=== PATIENT | male | born 1960 | race Caucasian/White ===

== ENCOUNTER 2020-05-31 13:30 | Emergency (ER) | payer OTHER ==
[~2020-05-31] VITALS: Ht 170.2 cm; Wt 96.8 kg
[2020-05-31] MEDS ORDERED: SERT100T12 PO (13:50)
[2020-05-31] MEDS ORDERED: EMPA25TA PO (13:50)
[2020-05-31] MEDS ORDERED: ROPI0.2535 PO (13:50)
[2020-05-31] MEDS ORDERED: METO25 PO (13:50)
[2020-05-31] MEDS ORDERED: INSLAN SQ (13:50)
[2020-05-31] MEDS ORDERED: DULA1.5P SQ (13:50)
[2020-05-31] MEDS ORDERED: LEVO125 PO (13:50)
[2020-05-31] MEDS ORDERED: ATOR40TA28 PO (13:50)
[2020-05-31] MEDS ORDERED: QUET200T PO (13:50)
[2020-05-31] MEDS ORDERED: CARV6 PO (13:50)
[2020-05-31] MEDS ORDERED: TELM40 PO (13:50)
[2020-05-31] MEDS ORDERED: GABA-1181 PO (13:50)
[2020-05-31] MEDS ORDERED: CETI-450 PO (13:50)
[2020-05-31] MEDS ORDERED: INSU100V SQ (13:50)
[2020-05-31] MEDS ORDERED: LITH300C3 PO (13:50)
[2020-05-31] MEDS ORDERED: FENO160T41 PO (13:50)
[2020-05-31] MEDS ORDERED: SPIR50 PO (13:50)
[2020-05-31] MEDS ORDERED: TOLT2TAB2 PO (13:50)
[2020-05-31] MEDS ORDERED: TAMS-13 PO (13:50)
[2020-05-31] MEDS ORDERED: CHOL100018 PO (13:53)
[2020-05-31] MEDS ORDERED: VITA400T9 PO (13:53)
[2020-05-31] MEDS ORDERED: OMEG-102 PO (13:53)
[2020-05-31] MEDS ORDERED: CINN500C4 PO (13:53)
[2020-05-31] MEDS ORDERED: ASPI-728 PO (13:53)
[2020-05-31] MEDS ORDERED: MULT-1259 PO (13:53)
[2020-05-31] MEDS ORDERED: SODIUM CHLORIDE 0.9% 1,000 ML IV ONE ×2 (14:30→16:45)
[2020-05-31] MEDS ORDERED: LORazepam 1 MG TABLET PO ONE (14:30)
[2020-05-31 14:52] LABS: BASOPHILS % (AUTO) 0.3 % (0.0-2.0); EOSINOPHILS % (AUTO) 0.1 % (1.0-6.0); HEMATOCRIT 47.8 % (41-53); HEMOGLOBIN 15.7 g/dL (13.5-17.5); LYMPHOCYTES # (AUTO) 1.7 K/uL (1.0-4.8); LYMPHOCYTES % (AUTO) 13.5 % (22.0-44.0); MEAN CORPUSCULAR HEMOGLOBIN 28.8 pg (26.0-34.0); MEAN CORPUSCULAR HGB CONC 32.9 G/dL (31.0-37.0); MEAN CORPUSCULAR VOLUME 87 fL (80-100); MONOCYTES # (AUTO) 0.8 K/uL (0.1-1.0); MONOCYTES % (AUTO) 6.3 % (2.0-9.0); NEUTROPHILS # (AUTO) 9.8 K/uL (1.8-7.7); NEUTROPHILS % (AUTO) 79.8 % (40.0-70.0); PLATELET COUNT (AUTO) 268 K/uL (150-450); RED BLOOD CELL COUNT(AUTO) 5.47 MIL/uL (4.50-5.90); RED CELL DISTRIBUTION WIDTH 15.6 % (11.5-14.5)
[2020-05-31 15:05] LABS: CALCIUM, TOTAL 9.4 mg/dL (8.8-10.5); CREATININE 1.36 mg/dL (0.60-1.30); POTASSIUM 3.1 mmol/L (3.5-5.1)
[2020-05-31 15:15] LABS: ALBUMIN 4.3 g/dL (3.4-5.0); BILIRUBIN,TOTAL 0.5 mg/dL (0.1-1.0); TOTAL PROTEIN, SERUM 7.6 g/dL (6.4-8.2)
[2020-05-31] MEDS ORDERED: POTASSIUM CHLORIDE 20 MEQ ER TABLET PO ONE (16:00)
[2020-05-31] MEDS ORDERED: ONDANSETRON HCL 4 MG/2 ML VIAL IVP ONE (16:00)
[2020-05-31 16:18] LABS: LITHIUM 0.29 mmol/L (0.60-1.20)
[2020-05-31] MEDS ORDERED: LITH600 PO (16:40)
[2020-05-31 17:30] VITALS: BP 138/81
[2020-05-31 17:30] LABS: APPEARANCE,URINE CLEAR (CLEAR); BILIRUBIN,URINE NEGATIVE (NEGATIVE); GLUCOSE, URINE (UA) >=1000 mg/dL (NEGATIVE); KETONES,URINE TRACE mg/dL (NEGATIVE); LEUKOCYTE ESTERASE ,URINE NEGATIVE (NEGATIVE); NITRATE,URINE NEGATIVE (NEGATIVE); OCCULT BLOOD,URINE NEGATIVE (NEGATIVE); PROTEIN,URINE TRACE (NEGATIVE); UROBILINOGEN,URINE 0.2 mg/dL (<=1.0)
[2020-05-31 17:36] LABS: AMPHET/METH SCREEN,URINE NEGATIVE (NEGATIVE); BARBITURATE SCREEN, URINE NEGATIVE (NEGATIVE); BENZODIAZEPINES SCREEN,URINE NEGATIVE (NEGATIVE); CANNABINOID SCREEN,URINE NEGATIVE (NEGATIVE); COCAINE SCREEN,URINE NEGATIVE (NEGATIVE); METHADONE SCREEN, URINE NEGATIVE (NEGATIVE); OPIATE SCREEN,URINE NEGATIVE (NEGATIVE)
[2020-05-31 17:40] LABS: BACTERIA,URINE None Seen /HPF (None Seen); RBC,URINE None Seen /HPF (0-2); WBC,URINE None Seen /HPF (0-5)
[2020-05-31 17:43] LABS: PHENCYCLIDINE SCREEN,URINE NEGATIVE (NEGATIVE)
== END 2020-05-31 18:03 | disposition home or self-care (01) ==
LOC: EMS 13:35
DX: K80.20 Calculus of gallbladder without cholecystitis without obstruction (principal); E87.6 Hypokalemia; E86.0 Dehydration; E11.9 Type 2 diabetes mellitus without complications; R11.2 Nausea with vomiting, unspecified; E78.00 Pure hypercholesterolemia, unspecified; I10 Essential (primary) hypertension; E03.9 Hypothyroidism, unspecified; Z79.4 Long term (current) use of insulin; Z79.899 Other long term (current) drug therapy
CPT/HCPCS: 36415; 71045; 76700; 80053; 80178; 80307; 81001; 82550; 82962; 83690; 83880; 84484; 85025; 93005; 96361; 96374; 99285; J2405; J7030